=== PATIENT | male | born 1975 | race Caucasian/White ===

== ENCOUNTER 2023-07-10 23:16 | Emergency (ER) | payer OTHER ==
[~2023-07-10] VITALS: Ht 180.3 cm; Wt 83.9 kg
[2023-07-11 00:29] VITALS: BP 121/94; TEMP 98.1; O2SAT 98
[2023-07-11] MEDS ORDERED: LIDOCAINE VISCOUS 2% UD 15 ML UDC MM ONE (01:00)
[2023-07-11] MEDS ORDERED: PANTOPRAZOLE 40 MG VIAL IV ONE (01:00)
[2023-07-11] MEDS ORDERED: IV NS 0.9% 1,000 ML BAG IV ONE (01:00)
[2023-07-11] MEDS ORDERED: MAG HYDROX/AL HYDROX/SIMETH 30 ML UDC PO ONE (01:00)
[2023-07-11] MEDS ORDERED: ONDANSETRON HCL/PF 4 MG/2 ML VIAL IVP ONE (01:00)
== END 2023-07-11 00:52 | disposition left against medical advice (07) ==
LOC: ER 23:22
DX: R10.13 Epigastric pain (principal); K21.9 Gastro-esophageal reflux disease without esophagitis